=== PATIENT | male | born 1950 | race Caucasian/White ===

== ENCOUNTER → 2017-03-01 | Outpatient (CLI) | payer OTHER | END | disposition home or self-care (01) | LOC: CFH 09:09 | PROVIDERS: ATTEND Nurse Practitioner Family | DX: R91.8 Other nonspecific abnormal finding of lung field (principal); Z87.01 Personal history of pneumonia (recurrent) | CPT/HCPCS: 71020 ==

== ENCOUNTER → 2017-03-22 | Outpatient (CLI) | payer OTHER | END | disposition home or self-care (01) | LOC: CFH 10:37 | PROVIDERS: ATTEND Family Medicine | DX: M19.071 Primary osteoarthritis, right ankle and foot (principal); M25.774 Osteophyte, right foot ==

== ENCOUNTER → 2020-05-21 | Outpatient (CLI) | payer MEDICARE | END | disposition home or self-care (01) | LOC: CFH 14:18 | PROVIDERS: ATTEND Nurse Practitioner Family | DX: R59.1 Generalized enlarged lymph nodes (principal) | CPT/HCPCS: 76536 ==

== ENCOUNTER 2020-10-26 08:21 | Emergency (ER) | payer MEDICARE ==
[~2020-10-26] VITALS: Ht 175.3 cm; Wt 98.2 kg
--- NOTE | 2020-10-26 08:49 | NUR ---
Report received for start of shift from MIRA Poon and care assumed. Pt just arrived to room prior to start of my shift and was changing.
[2020-10-26] MEDS ORDERED: HYDR30CR7 PR (09:04)
[2020-10-26] MEDS ORDERED: TAMS-11 PO (09:04)
[2020-10-26] MEDS ORDERED: FERR324T5 PO (09:04)
[2020-10-26] MEDS ORDERED: LISI-170 PO (09:04)
[2020-10-26] MEDS ORDERED: rovastatin PO (09:04)
[2020-10-26] MEDS ORDERED: ROSU10TA2 PO (09:05)
--- NOTE | 2020-10-26 09:05 | NUR ---
PA at bedside for exam. [employer] completed. Med Rec completed.
[2020-10-26 09:25] LABS: MICROSCOPIC NOT IND
[2020-10-26] MEDS ORDERED: SODIUM CHLORIDE FLUSH 10ML SYR IVF ONE (09:30)
--- NOTE | 2020-10-26 09:39 | NUR ---
100mL light yellow clear uop with UA sample obtained and sent. IV started with lab draw and PCXR completed. Awaiting results.
[2020-10-26 09:43] LABS: BASOPHILS % (AUTO) 1 % (0-1); EOSINOPHILS % (AUTO) 4 % (1-7); LYMPHOCYTES % (AUTO) 30 % (22-44); MEAN CORPUSCULAR HEMOGLOBIN 22.9 pg (27.5-34.5); MEAN CORPUSCULAR HGB CONC 30.8 g/dL (33.2-36.2); MEAN PLATELET VOLUME 8.1 fL (7.4-10.4); MONOCYTES % (AUTO) 8 % (2-9); NEUTROPHILS % (AUTO) 58 % (42-75); PLATELET COUNT 222 x10^3/uL (130-400); RED BLOOD COUNT 3.71 x10^6/uL (4.38-5.82); RED CELL DISTRIBUTION WIDTH 16.5 % (9.4-14.8)
[2020-10-26 09:49] LABS: MD NO
[2020-10-26 09:55] LABS: ANION GAP 5 mmol/L (5-15); CALCIUM 9.1 mg/dL (8.5-10.1); CHLORIDE 109 mmol/L (98-107); CREATININE 0.96 mg/dL (0.7-1.3)
[2020-10-26 09:59] LABS: TROPONIN I < 0.015 ng/mL (0.000-0.045)
--- NOTE | 2020-10-26 10:01 | NUR ---
Lab and radiology results reviewed and chart marked for MD recheck. Pt and daughter updated.
--- NOTE | 2020-10-26 10:24 | NUR ---
MD and PA at bedside to discuss results and plan of care with pt and daughter at this time.
[2020-10-26 12:07] VITALS: BP 127/56
[2020-10-26 12:23] VITALS: BP 117/63
--- NOTE | 2020-10-26 12:52 | NUR ---
Pt without rxn to transfusion with blood still infusing at this time.
[2020-10-26 13:20] VITALS: BP 118/65
== END 2020-10-26 14:22 ==
LOC: ED 09:15
DX: K92.2 Gastrointestinal hemorrhage, unspecified (principal); D50.9 Iron deficiency anemia, unspecified
CPT/HCPCS: 36415; 36430; 71045; 80048; 81003; 82040; 83880; 84484; 85025; 86850; 86900; 86923; 93005; 99285; P9016

== ENCOUNTER 2020-12-26 08:25 | Emergency (ER) | payer MEDICARE ==
[~2020-12-26] VITALS: Ht 170.2 cm; Wt 83.9 kg
[~2020-12-26 08:25] MED LIST: FERR324T5 PO; HYDR30CR7 PR; LISI-170 PO; ROSU10TA2 PO; TAMS-11 PO; rovastatin PO
--- NOTE | 2020-12-26 08:31 | NUR ---
EKG DONE IN TRIAGE.
--- NOTE | 2020-12-26 09:04 | NUR ---
PT PRESENTS TO ED WITH C/O FEELING DIZZY AND WEAK AND LOSING BLOOD FROM A HEMORRHOID. PT SEEN HERE TWO MONTHS AGO FOR SAME SYMPTOMS. PT WAS TRANSFUSED WITH [facility] LAST VISIT PER PT. PT STATES BLOODY STOOL THIS MORING. PT NEURO INTACT, A&O, RESPS EVEN AND UNLABORED, ALL MONITORS ATTACHED, NSR, NADN. LAB AT BEDSIDE. Addendum: 12/26/20 at 0954 by RITA PT PRESENTS TO ED WITH C/O FEELING DIZZY AND WEAK X 3 MONTHS AND LOSING BLOOD FROM A HEMORRHOID. PT SEEN HERE TWO MONTHS AGO FOR SAME SYMPTOMS. PT WAS TRANSFUSED WITH [facility] LAST VISIT PER PT. PT STATES BLOODY STOOL THIS MORING. PT NEURO INTACT, A&O, RESPS EVEN AND UNLABORED, ALL MONITORS ATTACHED, NSR, NADN. LAB AT BEDSIDE.
[2020-12-26 09:12] LABS: BASOPHILS % (AUTO) 1 % (0-1); EOSINOPHILS % (AUTO) 3 % (1-7); LYMPHOCYTES % (AUTO) 26 % (22-44); MEAN CORPUSCULAR HEMOGLOBIN 22.8 pg (27.5-34.5); MEAN CORPUSCULAR HGB CONC 31.3 g/dL (33.2-36.2); MONOCYTES % (AUTO) 10 % (2-9); NEUTROPHILS % (AUTO) 61 % (42-75); PLATELET COUNT 218 x10^3/uL (130-400); RED BLOOD COUNT 3.83 x10^6/uL (4.38-5.82); RED CELL DISTRIBUTION WIDTH 17.7 % (9.4-14.8)
[2020-12-26 09:39] LABS: ALANINE AMINOTRANSFERASE 23 U/L (12-78); ALBUMIN 3.5 g/dL (3.4-5.0); ANION GAP 7 mmol/L (5-15); CHLORIDE 109 mmol/L (98-107); CREATININE 0.85 mg/dL (0.7-1.3)
[2020-12-26 09:41] LABS: ALKALINE PHOSPHATASE 59 U/L (45-117); BILIRUBIN,TOTAL 0.3 mg/dL (0.2-1.0); TOTAL PROTEIN 7.5 g/dL (6.4-8.2)
--- NOTE | 2020-12-26 09:54 | NUR ---
PT RESTING IN BED, A&O, RESPS EVEN AND UNLABORED, VSS, NADN. ALL MONITORS ATTACHED, NSR, CALL LIGHT IN REACH. AWAITING LAB RESULTS AND DISPO.
--- NOTE | 2020-12-26 10:06 | NUR ---
nas Rodriguez at bedside to discuss POC
[2020-12-26 10:30] VITALS: BP 148/86
--- NOTE | 2020-12-26 10:35 | NUR ---
pt and family members educated on hospital/blood bank policy, verbalized undertsanding that blood transfusion is not indicated at this time. pt not actively bleeding at this time, no SOB or CP, pt a&o, resps even and unlabored, ambulatory with stready gait. pt ambulatory with to discharge.
== END 2020-12-26 10:39 | disposition home or self-care (01) ==
LOC: ED 09:34
DX: K64.4 Residual hemorrhoidal skin tags (principal); D50.0 Iron deficiency anemia secondary to blood loss (chronic); R42 Dizziness and giddiness; R06.02 Shortness of breath; R94.31 Abnormal electrocardiogram [ECG] [EKG]
CPT/HCPCS: 36415; 80053; 85025; 86850; 86900; 93005; 99284